=== PATIENT | female | born 1990 | race Caucasian/White ===

== ENCOUNTER 2023-12-07 20:28 | Emergency (ER) | payer SELFPAY ==
[~2023-12-07] VITALS: Ht 165.1 cm; Wt 74.0 kg
[2023-12-07 20:43] VITALS: O2SAT 99
[2023-12-08] MEDS: HYDROXYZINE 25MG TABLET PO ONE (00:55)
[2023-12-08 01:00] VITALS: BP 124/81; PULSE 76; RESP 20; TEMP 97.8
[2023-12-08] MEDS ORDERED: HYDR50TA55 MT (01:48)
== END 2023-12-08 02:11 | disposition home or self-care (01) ==
LOC: ER 20:28
DX: F41.0 Panic disorder [episodic paroxysmal anxiety] (principal)
CPT/HCPCS: 99283

== ENCOUNTER 2024-02-04 21:23 | Emergency (ER) | payer MEDICAID ==
[~2024-02-04] VITALS: Ht 160 cm; Wt 82.0 kg
[~2024-02-04 21:23] MED LIST: HYDR50TA55 MT
[2024-02-04 21:25] VITALS: O2SAT 100
[2024-02-04 22:14] LABS: BASOPHILS % 0.6 % (0.0-2.0); EOSINOPHILS % 2.7 % (0.0-5.0); HEMOGLOBIN. 10.9 g/dL (12.0-16.0); LYMPHOCYTES % 28.5 % (20.0-50.0); MEAN CORPUSCULAR HEMOGLOBIN 28.4 pg (28.0-32.0); MEAN CORPUSCULAR HGB CONC 33.1 g/dL (31.0-37.0); MEAN CORPUSCULAR VOLUME 85.7 fL (81.0-99.0); MEAN PLATELET VOLUME 9.1 fl (7.4-10.4); MONOCYTES % 8.6 % (2.0-8.0); NEUTROPHILS % 59.6 % (40.0-76.0); PLATELET 274 x1000/uL (130-400); RED BLOOD CELL COUNT 3.85 mill/uL (4.2-5.4); RED CELL DISTRIBUTION WIDTH 15.3 % (11.6-14.6); WHITE BLOOD COUNT 8.6 x1000/uL (4.5-11.0)
[2024-02-04 22:16] LABS: CHLORIDE 115 mEq/L (98-107); POTASSIUM 3.3 mEq/L (3.5-5.1); SODIUM 144 mEq/L (136-145)
[2024-02-04 22:17] LABS: CARBON DIOXIDE 24 mEq/L (21-32)
[2024-02-04 22:22] LABS: CREATININE 0.5 mg/dL (0.6-1.0); GLUCOSE 85 mg/dL (70-105); UREA NITROGEN BLOOD 12 mg/dL (9-23)
[2024-02-04 22:25] LABS: CALCIUM 7.4 mg/dL (8.7-10.4); HCG SCREEN NEGATIVE
[2024-02-04 22:33] LABS: TROPONIN I HIGH SENSITIVITY < 4 ng/L (3.0-34)
[2024-02-04] MEDS: METHOCARBAMOL 750MG TABLET PO STA (22:44)
[2024-02-04 23:00] VITALS: TEMP 98.7
[2024-02-05 01:00] VITALS: BP 98/50; PULSE 83; RESP 15
[2024-02-05] MEDS ORDERED: MULT-379 MT (02:19)
[2024-02-05] MEDS: POTASSIUM CHLORIDE 20MEQ TABLET SR PO ONE (02:47)
[2024-02-05] MEDS: CALCIUM CARBONATE/VITAMIN D3 500MG TABLET PO ONE (02:48)
== END 2024-02-05 02:36 | disposition home or self-care (01) ==
LOC: ER 21:23
DX: E83.51 Hypocalcemia (principal); R07.89 Other chest pain; E87.6 Hypokalemia; M54.9 Dorsalgia, unspecified
CPT/HCPCS: 36415; 71045; 80048; 84484; 84703; 85025; 93005; 99285